=== PATIENT | male | born 1995 | race African-American/Black ===

== ENCOUNTER 2017-02-08 05:38 | Emergency (ER) | payer OTHER ==
[~2017-02-08 05:38] MED LIST: TRILEPTAL600 MG PO
== END 2017-02-08 06:24 | disposition home or self-care (01) ==
LOC: CED 05:38
DX: S61.401A Unspecified open wound of right hand, initial encounter (principal); Z79.899 Other long term (current) drug therapy; W26.9XXA Contact with unspecified sharp object(s), initial encounter
CPT/HCPCS: 99283

== ENCOUNTER 2017-04-11 10:49 | Emergency (ER) | payer OTHER | END 2017-04-11 11:55 | disposition home or self-care (01) | LOC: CED 10:49 → CFTX 10:49 | DX: H66.91 Otitis media, unspecified, right ear (principal); I10 Essential (primary) hypertension; Z79.899 Other long term (current) drug therapy | CPT/HCPCS: 99282 ==